=== PATIENT | male | born 1940 | race Caucasian/White ===

== ENCOUNTER 2018-09-17 21:47 | Emergency (ER) | payer OTHER ==
[2018-09-17 22:03] VITALS: O2SAT 96
--- NOTE | 2018-09-17 22:15 | ED.PDOC ---
History of Present Illness - General Chief Complaint: Abdominal Pain Stated Complaint: abd pain Time Seen by Provider: 09/17/18 22:09 Information Source: patient - History of Present Illness Initial Comments: Pt awoke this morning at 3 am with generalized cramping abd pain with bloating. He started vomiting this afternoon. He had a small BM this afternoon Abdominal Pain Onset Location: generalized abdomen Pain Radiation: no radiation Quality: severe, cramping Improving Factors: nothing Worsening Factors: nothing Associated Symptoms: nausea/vomiting Review of Systems - Review of Systems Constitutional: States: chills, malaise EENTM: States: no symptoms reported Respiratory: States: no symptoms reported. Denies: short of breath Cardiology: Denies: chest pain, edema Gastrointestinal/Abdominal: States: abdominal pain, constipation, nausea, vomiting Genitourinary: Denies: dysuria, frequency Musculoskeletal: States: no symptoms reported Skin: States: no symptoms reported Neurological: States: no symptoms reported Endocrine: States: no symptoms reported Hematologic/Lymphatic: States: no symptoms reported Past Medical History (General) - Patient Medical History Hx Hypertension: Yes Hx Diabetes: No Surgical History: appendectomy, cholecystectomy, colectomy - Vaccination History Hx Influenza Vaccination: Yes Family Medical History - Family History Father Family History: Unknown Physical Exam - Physical Exam General Appearance: Alert, Obvious distress Eyes, Ears, Nose, Throat Exam: PERRL/EOMI, TMs normal, pharynx normal Respiratory: chest non-tender, lungs clear, normal breath sounds Cardiovascular/Chest: normal peripheral pulses, regular rate, rhythm Gastrointestinal/Abdominal: normal bowel sounds, soft, no organomegaly, distended, tenderness - No guarding or rebound Back Exam: normal inspection Neurologic: alert, normal mood/affect, oriented x 3 Skin Exam: normal color, warm/dry Progress - EKG/XRAY/CT EKG: Sinus, Tachy, nonspecific ST T wave Chg, Abnormal Q waves - inferiorly and anteriorly Comments: rate 103, TX 170, QRS 102 Departure - Departure Clinical Impression: Ileus, Colitis Disposition: Discharge to Home or Self Care Departure Forms: ED Discharge - Pt. Copy, Patient Portal Self Enrollment Instructions: DI for Abdominal Pain-Adult Prescriptions: Ondansetron Tab [Zofran Tab] 4 mg PO Q4HR PRN #20 tab PRN Reason: Nausea RX: Ciprofloxacin 500 mg PO BID #14 ml Home Medications: Ambulatory Orders Acetaminophen W/ Codeine [Tylenol W/ CODEINE #3] 1 ea PO Q6HRS 09/17/18 Pregabalin [Lyrica] 50 mg PO DAILY 09/17/18 RX: Esomeprazole Magnesium 40 mg PO DAILY 09/17/18 Valsartan 160 mg PO DAILY 09/17/18 Ondansetron Tab [Zofran Tab] 4 mg PO Q4HR PRN #20 tab 09/18/18 RX: Ciprofloxacin 500 mg PO BID #14 ml 09/18/18
[2018-09-17] MEDS ORDERED: SODIUM CHLORIDE 0.9% 1000ML 1,000 ML IVS ONE (22:16)
[2018-09-17] MEDS ORDERED: MORPHINE SULFATE INJ 10 MG/ML VIAL IV ONE (22:16)
[2018-09-17] MEDS ORDERED: ONDANSETRON INJ 4 MG/2 ML VIAL IV ONE (22:17)
--- NOTE | 2018-09-17 22:47 | RAD ---
EXAM: XR Abdomen 2 Views With XR Chest CLINICAL HISTORY: The patient is 78 years old and is Male; bloating and vomiting TECHNIQUE: Frontal view of the chest, frontal view of the abdomen/pelvis and upright or decubitus view of the abdomen. COMPARISON: No relevant prior studies available. FINDINGS: LUNGS: Minimal linear opacity within the left lung base is noted. The lungs are otherwise clear. PLEURAL SPACE: Unremarkable. No pneumothorax. HEART: Unremarkable. No cardiomegaly. MEDIASTINUM: Unremarkable. INTRAPERITONEAL SPACE: No free air. GASTROINTESTINAL TRACT: There is a relative paucity of bowel gas. Minimal distal stool and air are present. No dilated loops of bowel are seen. BONES/JOINTS: Unremarkable. SOFT TISSUES: Surgical clips are present within the right upper quadrant. IMPRESSION: 1. Findings suggestive of left basilar atelectasis. 2. Relative paucity of bowel gas which may be secondary to incomplete distention versus fluid-filled loops of bowel. Electronically signed by: Fiona Michael MD 09/17/2018 10:44 PM CDT
--- NOTE | 2018-09-17 23:35 | CT ---
EXAM DESCRIPTION: Abdomen/Pelvis w/Contrast CLINICAL HISTORY: 78 years Male R/O SBO COMPARISON: Abdominal radiographs obtained on the same day. TECHNIQUE: Images were obtained in axial, sagittal, and coronal planes. Intravenous contrast was administered. This exam was performed according to our departmental dose-optimization program which includes use of Automated Exposure Control, adjustment of the mA and/or kV according to patient size and/or use of iterative reconstruction technique. FINDINGS: Mildly distended fluid-filled small bowel loops with no definite bowel obstruction. No intraperitoneal free air. Moderate diverticulosis left colon. Suspected mucosal thickening descending colon. Appendix not well identified however no secondary signs for appendicitis. No abnormality involving the liver, spleen, pancreas, or adrenal glands bilaterally. No obstructing renal calcifications bilaterally. No hydronephrosis bilaterally. Incompletely distended bladder. Enlarged prostate gland. Small hiatal hernia. No abnormality lower lungs bilaterally. No acute osseous abnormality. Calcification abdominal aorta with no dilatation seen. Unremarkable portal vein. No adenopathy. No abnormal fluid collections seen. IMPRESSION: No definite bowel obstruction. Mildly distended fluid-filled small bowel loops possibly ileus. Moderate diverticulosis left colon with possible colitis. Electronically signed by: Charla Butcher MD 09/17/2018 11:32 PM CDT
[2018-09-18 00:16] VITALS: BP 141/82; TEMP 98.1
== END 2018-09-18 00:17 | disposition home or self-care (01) ==
LOC: ER 21:47
DX: K52.9 Noninfective gastroenteritis and colitis, unspecified (principal); R00.0 Tachycardia, unspecified; I10 Essential (primary) hypertension; Z90.49 Acquired absence of other specified parts of digestive tract
CPT/HCPCS: 36415; 74019; 74177; 80053; 83605; 83690; 85025; 93005; J2270; J2405; J7030